=== PATIENT | male | born 1945 | race African-American/Black ===

== ENCOUNTER 2019-03-13 19:55 | Emergency (ER) | payer OTHER ==
[~2019-03-13] VITALS: Ht 177.8 cm; Wt 83.9 kg
--- NOTE | 2019-03-13 20:05 | NUR ---
BIBRA 86. PT WAS NOTED JUST STARRING BLANKLY, UNRESPONSIVE. DISORIENTED NO NEURO DEFICIT. LAST WELL KNOWN TIME 1844. USES CANNABIS FOR PAIN QD, pt to bed 10, -sob, pt on monitor, vss, nad noted, pending md hare
--- NOTE | 2019-03-13 20:20 | NUR ---
dr saleh at bedside for eval
--- NOTE | 2019-03-13 20:23 | NUR ---
code stroke called
--- NOTE | 2019-03-13 20:25 | NUR ---
pt to ct
[2019-03-13] MEDS ORDERED: IV NS 0.9% 250 ML IV ONE (20:29)
[2019-03-13] MEDS ORDERED: CT SWABBABLE VALVE TRANS SET 1 EA INFUS.SET MC ONE (20:29)
[2019-03-13] MEDS ORDERED: IOHEXOL-350 100 ML VIAL IV ONE (20:29)
--- NOTE | 2019-03-13 20:30 | NUR ---
lkw 1900 Addendum: 03/13/19 at 2043 by RHILOMEN [id number]
[2019-03-13 20:31] LABS: BASOPHILS % (AUTO) 0.7 % (0.0-2.0); EOSINOPHILS % (AUTO) 0.8 % (0.0-6.0); HEMATOCRIT 44 % (39-51); HEMOGLOBIN 15.1 g/dL (13.5-17.5); LYMPHOCYTES # (AUTO) 2.1 /CMM (0.8-4.8); LYMPHOCYTES % (AUTO) 28.7 % (20.0-44.0); MEAN CORPUSCULAR HGB CONC 35 g/dl (31.0-36.0); MEAN CORPUSCULAR VOLUME 92 fL (80-96); MONOCYTES # (AUTO) 0.7 /CMM (0.1-1.30); MONOCYTES % (AUTO) 9.8 % (2.0-12.0); NEUTROPHILS # (AUTO) 4.3 /CMM (1.8-8.9); PLATELET COUNT (AUTO) 162 /CMM (150-450); RED BLOOD CELL COUNT(AUTO) 4.77 MIL/uL (4.5-6.0); WHITE BLOOD COUNT (AUTO) 7.2 K/uL (4.3-11.0)
[2019-03-13 20:43] LABS: CALCIUM, SERUM 9.2 mg/dL (8.5-10.1); CARBON DIOXIDE 31 mmol/L (21-32); CHLORIDE 104 mmol/L (98-107); GLUCOSE 253 mg/dL (74-106); POTASSIUM 4.5 mmol/L (3.5-5.1); SODIUM SERUM 139 mmol/L (136-145); UREA NITROGEN, BLOOD 17 mg/dL (7-18)
[2019-03-13 20:48] LABS: ALANINE AMINOTRANSFERASE 51 U/L (12-78); ALBUMIN 3.6 g/dL (3.4-5.0); ALKALINE PHOSPHATASE 49 U/L (46-116); ASPARTATE AMINOTRANSFERASE 21 U/L (15-37); BILIRUBIN,DIRECT 0.2 mg/dL (0.0-0.2); BILIRUBIN,TOTAL 0.6 mg/dL (0.2-1.0); TOTAL PROTEIN, SERUM 6.9 g/dL (6.4-8.2)
[2019-03-13] MEDS ORDERED: DABI150C PO (20:53)
[2019-03-13] MEDS ORDERED: GLIP10TA11 PO (20:53)
[2019-03-13] MEDS ORDERED: GLIP5TAB13 PO (20:53)
--- NOTE | 2019-03-13 21:00 | NUR ---
tele neuro dr. watson speaking with patient
--- NOTE | 2019-03-13 21:21 | NUR ---
CALLED [facility], WILL CONTACT [facility] FOR PATIENT INFO AND CALL BACK TO CONFIRM ELIGIBILITY.
[2019-03-13 21:27] LABS: CHOLESTEROL 89 mg/dL (<200); HDL CHOLESTEROL 54 mg/dL (40-60); LDL 26 mg/dL (0-99); TRIGLYCERIDES 69 mg/dL (30-150)
[2019-03-13] MEDS ORDERED: ASPIRIN 325 MG TABLET ONE (21:27)
[2019-03-13] MEDS ORDERED: ATORVASTATIN 40 MG TABLET ONE (21:27)
[2019-03-13] MEDS ORDERED: ASPIRIN EC 325 MG TABLET.DR PO ONE (21:30)
[2019-03-13] MEDS ORDERED: ATORVASTATIN 40 MG TABLET PO SCH (22:00)
--- NOTE | 2019-03-13 22:28 | NUR ---
[facility] transfer info: pickup [id number] bermudez ed [phone]
--- NOTE | 2019-03-13 22:52 | NUR ---
called for report to [facility]; no answer at this time
--- NOTE | 2019-03-13 23:29 | NUR ---
TRIED CALLING FOR REPORT, STILL NO ANSWER AT THIS TIME. WAS PUT ON HOLD FOR SEVERAL MINUTES. WILL CALL BACK AGAIN
[2019-03-13 23:54] VITALS: BP 124/73
--- NOTE | 2019-03-14 | NUR ---
REPORT GIVEN TO JOSE A CHARGE NURSE AT [facility]; ETA 0015 PER [facility].
--- NOTE | 2019-03-14 00:10 | NUR ---
AMBUALNCE IN FACILITY, REPORT GIVEN TO STAFF, PT IN STABLE CONDITON, -SOB, NAD NOTED, VSS. ALL PAPERWORK GIVEN
== END 2019-03-14 00:11 | disposition short-term general hospital (02) ==
LOC: ER 19:57
DX: G45.9 Transient cerebral ischemic attack, unspecified (principal); E11.65 Type 2 diabetes mellitus with hyperglycemia; I10 Essential (primary) hypertension; I48.91 Unspecified atrial fibrillation; F12.10 Cannabis abuse, uncomplicated; F10.10 Alcohol abuse, uncomplicated; Y90.9 Presence of alcohol in blood, level not specified; Z98.890 Other specified postprocedural states; Z79.899 Other long term (current) drug therapy
CPT/HCPCS: 36415; 70450; 70496; 70498; 71045; 80048; 80061; 80076; 82962; 84484; 85025; 85730; 93005; 99291; J7050; Q9967